=== PATIENT | female | born 1970 | race Caucasian/White ===

== ENCOUNTER 2016-03-24 19:48 | Emergency (ER) | payer OTHER ==
[2016-03-24 20:02] VITALS: TEMP 98.1; O2SAT 97
--- NOTE | 2016-03-24 20:05 | EDPHY ---
H & P Time Seen by Provider: 03/24/16 20:05 HPI/ROS: CHIEF COMPLAINT: RLQ abdominal pain HISTORY OF PRESENT ILLNESS: This 45-year-old woman had pain began about 45 minutes prior to arrival which she describes as searing and stabbing in her right lower quadrant. Does not radiate. A little bit worse with movement. Not associated with vomiting or diarrhea, fever or chills, vaginal or urinary symptoms. Has not had this before. REVIEW OF SYSTEMS: Eye: no change in vision ENT: no sore throat Cardiac: no chest pain or syncope Pulmonary: no cough or SOB Abdomen: HPI Musculoskeletal: no back pain Skin: no rash Neuro: no headache Constitutional: no fever : no urinary symptoms A comprehensive 10 point review of systems is otherwise negative aside from elements mentioned in the history of present illness. PAST MEDICAL HISTORY: varicose veins, pelvic vein congestion coiling 2 years ago Social history: , OOT, here w/kids General Appearance: Alert and conversant, cooperative. Eyes: No scleral icterus. ENT, Mouth: Normal mucous membranes. Respiratory: Normal respiratory effort, breath sounds equal, lungs are clear to auscultation. Cardiovascular: Regular rate and rhythm. Gastrointestinal: Right lower quadrant tenderness and decreased bowel sounds, Neurological: Alert and oriented x3. Normally conversant. Face symmetric, normal movement and sensation in all extremities. Skin: Warm and dry, no rashes. Musculoskeletal: No peripheral edema and no joint swelling. Psychiatric: Not agitated. Emergency Department course/MDM: Initially declined pain medication, plan for ultrasound appendix and right ovary , labs to include CBC . Repeat evaluation patient has had symptoms mostly subsided at this point. Discussed that ultrasound is negative. I think appendicitis at this point would be very unlikely. I think ovarian torsion is unlikely as well. Patient is reassured and discharged home in improved condition. Smoking Status: Never smoked Constitutional: Initial Vital Signs Temperature (C) 36.7 C 03/24/16 19:59 Heart Rate 85 03/24/16 19:59 Respiratory Rate 18 03/24/16 19:59 Blood Pressure 140/73 H 03/24/16 19:59 O2 Sat (%) 97 03/24/16 19:59 O2 Delivery Mode Room Air Allergies/Adverse Reactions: amoxicillin Allergy (Verified 03/24/16 19:58) codeine Allergy (Verified 03/24/16 19:58) Penicillins Allergy (Verified 03/24/16 19:58) Sulfa (Sulfonamide Antibiotics) Allergy (Verified 03/24/16 19:58) Home Medications: Medication Instructions Recorded NK [No Known Home Meds] 03/24/16 Medical Decision Making - Diagnostics Imaging: Ultrasound reported by [facility] is pelvic congestion, can't see appendix, no secondary evidence of appendicitis at 9:13 p.m. Differential Diagnosis: Differential considered including but not limited to ovarian torsion, ovarian cyst, urinary tract infection, appendicitis. Renal colic considered, thought unlikely with abdominal tenderness and no hematuria. - Data Points Laboratory Results: Laboratory Results 03/24/16 20:20 03/24/16 20:20 03/24/16 03/24/16 03/24/16 20:50 20:20 20:20 WBC RBC Hgb Hct MCV MCH MCHC RDW Plt Count MPV Neut % (Auto) Lymph % (Auto) Hamilton % (Auto) Eos % (Auto) Baso % (Auto) Nucleat RBC Rel Count Absolute Neuts (auto) Absolute Lymphs (auto) Absolute Monos (auto) Absolute Eos (auto) Absolute Basos (auto) Absolute Nucleated RBC Immature Gran % Immature Gran # Sodium 141 mEq/L mEq/L (134-144) Potassium 3.8 mEq/L mEq/L (3.5-5.2) Chloride 106 mEq/L mEq/L (97-110) Carbon Dioxide 22 mEq/l mEq/l (22-31) Anion Gap 13 mEq/L mEq/L (8-16) BUN 9 mg/dL mg/dL (7-23) Creatinine 0.6 mg/dL mg/dL (0.6-1.0) Estimated GFR > 60 Glucose 80 mg/dL mg/dL (70-100) Calcium 9.5 mg/dL mg/dL (8.5-10.4) Beta HCG, Qual NEGATIVE Urine RBC 1-3 /hpf /hpf (0-3) Urine WBC 1-3 /hpf /hpf (0-3) Ur Epithelial Cells TRACE /lpf /lpf (NONE-1+) Urine Mucus TRACE /lpf /lpf (NONE-1+) 03/24/16 20:20 WBC 5.78 10^3/uL 10^3/uL (3.80-9.50) RBC 4.79 10^6/uL 10^6/uL (4.18-5.33) Hgb 14.1 g/dL g/dL (12.6-16.3) Hct 42.1 % % (38.0-47.0) MCV 87.9 fL fL (81.5-99.8) MCH 29.4 pg pg (27.9-34.1) MCHC 33.5 g/dL g/dL (32.4-36.7) RDW 12.8 % % (11.5-15.2) Plt Count 211 10^3/uL 10^3/uL (150-400) MPV 10.3 fL fL (8.7-11.7) Neut % (Auto) 45.5 % % (39.3-74.2) Lymph % (Auto) 46.0 % H % (15.0-45.0) Hamilton % (Auto) 6.4 % % (4.5-13.0) Eos % (Auto) 1.4 % % (0.6-7.6) Baso % (Auto) 0.5 % % (0.3-1.7) Nucleat RBC Rel Count 0.0 % % (0.0-0.2) Absolute Neuts (auto) 2.63 10^3/uL 10^3/uL (1.70-6.50) Absolute Lymphs (auto) 2.66 10^3/uL 10^3/uL (1.00-3.00) Absolute Monos (auto) 0.37 10^3/uL 10^3/uL (0.30-0.80) Absolute Eos (auto) 0.08 10^3/uL 10^3/uL (0.03-0.40) Absolute Basos (auto) 0.03 10^3/uL 10^3/uL (0.02-0.10) Absolute Nucleated RBC 0.00 10^3/uL 10^3/uL (0-0.01) Immature Gran % 0.2 % % (0.0-1.1) Immature Gran # 0.01 10^3/uL 10^3/uL (0.00-0.10) Sodium Potassium Chloride Carbon Dioxide Anion Gap BUN Creatinine Estimated GFR Glucose Calcium Beta HCG, Qual Urine RBC Urine WBC Ur Epithelial Cells Urine Mucus Medications Given: Discontinued Medications Sodium Chloride (Ns) 1,000 mls @ 0 mls/hr IV ONCE ONE PRN Reason: Wide Open Stop: 03/24/16 20:14 Last Admin: 03/24/16 20:25 Dose: 1,000 mls Departure - Departure Disposition: Home, Routine, Self-Care Clinical Impression: Abdominal pain Qualifiers: Abdominal location: right lower quadrant Qualified Code(s): R10.31 - Right lower quadrant pain Condition: Good Instructions: Acute Abdominal Pain (ED) Referrals: NONE *PRIMARY CARE P,. [Unknown] - As per Instructions Brigitte Gonzalez MD [Primary Care Provider] - As per Instructions
[2016-03-24] MEDS ORDERED: NS 1,000 ML IV ONE (20:13)
[2016-03-24 20:28] LABS: % IMMATURE GRANULYOCYTES 0.2 % (0.0-1.1); ABSOLUTE IMMATURE GRANULOCYTES 0.01 10^3/uL (0.00-0.10); ADD DIFF? NO; ADD MORPH? NO; ADD SCAN? NO; ATYPICAL LYMPHOCYTE FLAG 10 (0-99); FRAGMENT RBC FLAG 0 (0-99); HEMATOCRIT 42.1 % (38.0-47.0); HEMOGLOBIN 14.1 g/dL (12.6-16.3); LEFT SHIFT FLG 0 (0-99); LIPEMIA HEMOLYSIS FLAG 80 (0-99); MEAN CELL HEMOGLOBIN 29.4 pg (27.9-34.1); MEAN CELL HEMOGLOBIN CONCENTR. 33.5 g/dL (32.4-36.7); MEAN CELL VOLUME 87.9 fL (81.5-99.8); MEAN PLATELET VOLUME 10.3 fL (8.7-11.7); PLATELET CLUMPS FLAG 0 (0-99); PLATELET COUNT 211 10^3/uL (150-400); RED BLOOD CELL COUNT 4.79 10^6/uL (4.18-5.33); RED CELL DISTRIBUTION WIDTH 12.8 % (11.5-15.2)
[2016-03-24 20:42] LABS: ANION GAP 13 mEq/L (8-16); CALCIUM 9.5 mg/dL (8.5-10.4); CARBON DIOXIDE 22 mEq/l (22-31); CHLORIDE 106 mEq/L (97-110); CREATININE 0.6 mg/dL (0.6-1.0); GLOMERULAR FILTRATION RATE > 60; GLUCOSE 80 mg/dL (70-100); POTASSIUM 3.8 mEq/L (3.5-5.2); SODIUM 141 mEq/L (134-144)
[2016-03-24 21:31] LABS: MUCUS TRACE /lpf (NONE-1+)
[2016-03-24 21:33] VITALS: BP 117/67; PULSE 65; RESP 16
== END 2016-03-24 21:35 | disposition home or self-care (01) ==
DX: R10.31 Right lower quadrant pain (principal)

== ENCOUNTER → 2016-05-18 | Outpatient (CLI) | payer OTHER | LOC: FIMAGING 09:41 | PROVIDERS: ATTEND Radiology Diagnostic Radiology | DX: R19.03 Right lower quadrant abdominal swelling, mass and lump (principal) ==

== ENCOUNTER → 2016-11-04 | Outpatient (CLI) | payer OTHER ==
[~2016-11-04] MED LIST: IOPAMIDOL (ISOVUE 370) 100 ML BTL IV ONE
== END ==
LOC: FIMAGING 09:51
PROVIDERS: ATTEND Radiology Diagnostic Radiology
DX: I86.2 Pelvic varices (principal)
CPT/HCPCS: Q9967

== ENCOUNTER → 2016-11-06 | Outpatient (CLI) | payer OTHER | LOC: FIMAGING 15:58 | PROVIDERS: ATTEND Family Medicine | DX: M79.605 Pain in left leg (principal); R60.9 Edema, unspecified ==

== ENCOUNTER 2016-12-01 11:49 | Day surgery (SDC) | payer OTHER ==
[2016-12-01] MEDS ORDERED: fentaNYL 100 MCG/2 ML INJ ONE ×2 (13:46→15:29)
[2016-12-01] MEDS ORDERED: ONDANSETRON 4 MG/2 ML VIAL ONE ×2 (13:46→13:58)
[2016-12-01] MEDS ORDERED: MIDAZOLAM 2 MG/2 ML VIAL ONE ×2 (13:47→15:29)
[2016-12-01] MEDS ORDERED: IOPAMIDOL (ISOVUE-300) 100 ML BTL ONE ×2 (14:31→15:45)
[2016-12-01] MEDS ORDERED: SODIUM TETRADECYL SULFATE 3% 2 ML VIAL IV ONE (14:31)
[2016-12-01] MEDS ORDERED: CLINDAMYCIN 600 MG/DEXTROSE 50 ML IV ONE (16:00)
[2016-12-01 17:28] VITALS: PULSE 54; RESP 16; TEMP 98.4
[2016-12-01 17:48] VITALS: BP 116/59; O2SAT 100
[2016-12-02] MEDS ORDERED: IOPAMIDOL (ISOVUE-300) 100 ML BTL ONE (08:57)
== END 2016-12-01 18:01 | disposition home or self-care (01) ==
LOC: FIMAGING 11:49
PROVIDERS: ATTEND Radiology Diagnostic Radiology
PROC: 06L Lower Veins, Occlusion (ICD-10-PCS; principal; 2016-12-01 17:15)
PROC: 06HG33Z Insertion of Infusion Device into Left External Iliac Vein, Percutaneous Approach (ICD-10-PCS; principal; 2016-12-01 17:15)
PROC: 06HF33Z Insertion of Infusion Device into Right External Iliac Vein, Percutaneous Approach (ICD-10-PCS; principal; 2016-12-01 17:15)
PROC: 06L Lower Veins, Occlusion (ICD-10-PCS; principal; 2016-12-01 17:15)
DX: N94.89 Other specified conditions associated with female genital organs and menstrual cycle (principal)
CPT/HCPCS: 36012; 37241; 75822; 99152; 99153; C1769; C1894; J1644; J2250; J2405; J3010; Q9967

== ENCOUNTER → 2017-04-05 | Outpatient (CLI) | payer OTHER | LOC: FIMAGING 07:26 | PROVIDERS: ATTEND Radiology Diagnostic Radiology | DX: I83.93 Asymptomatic varicose veins of bilateral lower extremities (principal) ==

== ENCOUNTER → 2017-06-23 | Day surgery (SDC) | payer OTHER ==
[~2017-06-23] MED LIST changes: -IOPAMIDOL (ISOVUE 370) 100 ML BTL IV ONE; +SODIUM TETRADECYL SULFATE 3% 2 ML VIAL IV ONE
== END | disposition home or self-care (01) ==
LOC: FIMAGING 08:45
PROVIDERS: ATTEND Radiology Diagnostic Radiology
DX: I83.893 Varicose veins of bilateral lower extremities with other complications (principal); R10.31 Right lower quadrant pain; N94.89 Other specified conditions associated with female genital organs and menstrual cycle

== ENCOUNTER → 2017-11-01 | Outpatient (CLI) | payer OTHER | LOC: FIMAGING 09:45 | PROVIDERS: ATTEND Family Medicine | DX: Z12.31 Encounter for screening mammogram for malignant neoplasm of breast (principal) ==